=== PATIENT | male | born 1940 | race Caucasian/White ===

== ENCOUNTER → 2021-03-03 12:55 | Outpatient (CLI) | payer MEDICARE, OTHER, SELFPAY ==
--- NOTE | 2021-03-03 | DI.MRI.S_ITS ---
PROCEDURE: MR HEAD/BRAIN WO/W CON INDICATIONS: Unspecified disturbances of smell and taste TECHNIQUE: Noncontrast axial T1 spin echo, axial T2 fast spin echo, sagittal and axial FLAIR, coronal T2 fast spin echo, axial gradient echo, axial diffusion and ADC through the brain. After the administration of contrast, axial and coronal T1 spin echo with fat saturation through the brain. COMPARISON: None. FINDINGS: Image quality: Excellent. CSF spaces: Basal cisterns are patent. No extra-axial fluid collections. Ventricles are normal in size and shape. Brain: No midline shift. No intracranial bleeds . There is a 12 mm diameter dural based avidly enhancing focus within the left pre pontine cistern anteriorly. There is cerebral volume loss for age. There is a small chronic left frontoparietal lobe infarct. There is periventricular white matter chronic small vessel ischemic change. The brainstem appears normal. Diffusion-weighted images demonstrate no acute ischemic insults. No chronic ischemic insults. Normal intravascular flow voids are present. Skull and face: Calvarial marrow is normal in signal. Orbits appear normal. Sinuses: Sinuses and mastoids appear clear. IMPRESSION: 1. 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 2. Small chronic left parietal lobe infarct. 3. No acute process. No recent infarct. 4. Left pre pontine cistern meningioma. Dictated by: Alcides Coats M.D. on 03/03/2021 at 14:11 Approved by: Alcides Coats M.D. on 03/03/2021 at 14:14
== END ==
PROVIDERS: Family Provider Family Medicine; PCP Family Medicine; Referring Provider Family Medicine; Visit Provider Family Medicine
DX: R43.9 Unspecified disturbances of smell and taste (principal); I67.82 Cerebral ischemia; D32.9 Benign neoplasm of meninges, unspecified
CPT/HCPCS: 70553

== ENCOUNTER → 2022-03-10 13:33 | Outpatient (CLI) | payer MEDICARE, OTHER, SELFPAY ==
--- NOTE | 2022-03-10 | DI.ECHO.S_ITS ---
[facility] +---------+ : : [address] : : : : [id number] : : : : Phone: [phone]+ Echocardiogram Report + + :Name: SHANTA ADAN Study Date: 03/10/2022 Height: 70 in : :[facility] ReadingLocation: Weight: 170 lb : : Gender: Male BSA: 1.9 m2 : :: 1940 Age: 81 yrs BP: 123/76 mmHg: :Reason For Study: Syncope : :Ordering Physician: KYREE, : :NEWTON Millan Performed By: Randy Johnson : :Referring: NEWTON ADORNO : + + Interpretation Summary The ejection fraction is estimated to be 55-60%. The right ventricle is normal in size and function. There is no significant valvular heart disease. Procedure: A two-dimensional transthoracic echocardiogram with color flow and Doppler was performed. The study quality was technically adequate. There is no prior echocardiogram noted for this patient. Left Ventricle: The left ventricle is normal in size and wall thickness. Left ventricular systolic function is normal. The ejection fraction is estimated to be 55-60%. There are no focal wall motion abnormalities. Diastolic function could not be accurately assessed due to unobtainable data. Right Ventricle: The right ventricle is normal in size and function. Atria: Both atria are normal in size. The interatrial septum grossly appears intact with no obvious evidence for an atrial septal defect. Mitral Valve: The mitral valve is normal in structure and function. There is trace mitral regurgitation. Aortic Valve: There is mild aortic valve sclerosis. There is trace aortic regurgitation. Tricuspid Valve: The tricuspid valve is normal in structure and function. There is a trace or physiologic amount of tricuspid regurgitation. Pulmonary artery pressures cannot be estimated because of the lack of a measurable TR jet velocity. Pulmonic Valve: The pulmonic valve is not well seen, but is grossly normal. There is no pulmonic valvular regurgitation. Great Vessels: The aortic root is mildly dilated. The ascending aorta is mildly enlarged. The IVC is of normal diameter and collapses greater than 50% with a sniff. This suggests a low right atrial pressure of 3 mm Hg. Pericardium/ Pleura There is no pericardial effusion. There is no pleural effusion. MMode/2D Measurements & Calculations LVIDd: 5.4 cm LVOT diam: 2.2 cm LVIDs: 3.5 cm Ao root diam: 4.0 cm FS: 35.2 % asc Aorta Diam: 3.8 cm IVSd: 0.90 cm LVPWd: 0.90 cm LV martinez. diameter/BSA (cm/m^2): 2.8 LV sys. diameter/BSA (cm/m^2): 1.8 LA dimension: 3.6 cm RA long axis: 4.7 cm LA A2 area: 21.9 cm2 LA A4 area: 17.1 cm2 LA length (vol): 5.3 cm LA vol: 59.6 ml LA vol index: 30.6 ml/m2 TAPSE_phl: 2.4 cm Doppler Measurements & Calculations Ao V2 max: 125.0 cm/sec LVOT Max Binh: 102.0 cm/sec Ao V2 mean: 95.1 cm/sec LV V1 max P.2 mmHg Ao max P.0 mmHg LV V1 VTI: 22.5 cm Ao mean P.0 mmHg MAR(I,D): 3.3 cm2 Ao V2 VTI: 26.1 cm MAR(V,D): 3.1 cm2 sev ratio: 0.86 MAR indexed to BSA (cm^2/m^2): 1.7 MV E max binh: 91.3 cm/sec SV(LVOT): 85.5 ml MV A max binh: 82.7 cm/sec MV E/A: 1.1 Med Peak E' Binh: 5.6 cm/sec E/E' med: 16.3 Lat Peak E' Binh: 11.9 cm/sec E/E' lat: 7.7 E/e' average: 12.0 MV dec time: 0.14 sec AV VR_phl: 0.82 MV P1/2t-pr_phl: 40.0 msec MAR(VTI)/BSA_phl: 1.7 Reading Physician:03:12 PM
== END ==
PROVIDERS: Family Provider Family Medicine; PCP Family Medicine; Referring Provider Nurse Practitioner Family; Visit Provider Nurse Practitioner Family
DX: I35.8 Other nonrheumatic aortic valve disorders (principal); I77.810 Thoracic aortic ectasia; I77.89 Other specified disorders of arteries and arterioles; R55 Syncope and collapse
CPT/HCPCS: 93306

== ENCOUNTER 2022-08-28 18:50 | Emergency (ER) | payer MEDICARE, OTHER, SELFPAY ==
[2022-08-28] VITALS (8 sets, daily range): BP systolic 120–133; BP diastolic 66–83; PULSE 69–80; RESP 13–24; TEMP 36.7; O2SAT 99–100
--- NOTE | 2022-08-28 19:01 | DI.CT.S_ITS ---
PROCEDURE: CT HEAD/BRAIN WO CON INDICATIONS: Weakness TECHNIQUE: Noncontrast 4.5 mm thick angled axial sections acquired from the foramen magnum to the vertex, with coronal and sagittal reformats. For radiation dose reduction, the following was used: automated exposure control, adjustment of mA and/or kV according to patient size. COMPARISON: None. FINDINGS: Image quality: Excellent. CSF spaces: Basal cisterns are patent. No extra-axial fluid collections. The ventricles are symmetric in size and shape. Brain: No intracranial bleeds or masses. There is cerebral volume loss for age, with resultant ventricular and sulcal prominence. There are periventricular and deep white matter chronic small vessel ischemic changes. There is intracranial internal carotid artery atherosclerosis. Skull and face: Calvarium and visualized facial bones appear intact, without suspicious lesions. Tiny metallic foreign body, high right forehead. Sinuses: Visualized sinuses and mastoids are clear. IMPRESSION: No evidence acute intracranial process. Dictated by: Jacob Smith M.D. on 08/28/2022 at 19:48 Approved by: Jacob Smith M.D. on 08/28/2022 at 19:49
--- NOTE | 2022-08-28 19:11 | ED.GENADULT ---
HPI - General Adult General Chief complaint: Weakness Stated complaint: gen weakness Time Seen by Provider: 08/28/22 19:01 Source: EMS Mode of arrival: EMS History of Present Illness HPI narrative: Patient is an 82-year-old male who was flown in from the [place] where he lives after they were called by the patient's for decreased level of consciousness. I am unsure exactly when the symptoms started. There was some reports that maybe it was a couple days ago. There was also report that the patient did drink this evening. Was also question as to whether not the patient may be receiving more opioid pain medication. He initially was supposed to be on 5 mg 3 times a day however there was a prescription for 15 mg to be given once daily however the flight nurse stated that the potentially has been giving him this 3 times a day. Patient is unable to provide any HPI. Related Data Previous Rx's Medication Instructions Recorded atorvastatin 20 mg tablet (Lipitor) 20 mg PO HS #30 tabs 07/20/16 testosterone 20.25 mg/1.25 gram 1.62 % topical QDAY ##113 04/13/17 (1.62 %) transdermal gel pump (AndroGel) gabapentin 300 mg capsule 1,200 mg PO TID #360 caps 06/16/17 (Neurontin) sertraline 100 mg tablet 100 mg PO QDAY #90 tabs 07/03/17 morphine 15 mg immediate release 45 mg PO QIDP PRN #336 tabs 07/27/17 tablet Allergies Allergy/AdvReac Type Severity Reaction Status Date / Time No Known Drug Allergies Allergy Verified 08/28/22 21:36 Review of Systems Review of Systems ROS Unobtainable: Unobtainable due to mental condition Exam Initial Vital Signs Initial Vital Signs: Vital Signs Temperature 98.0 F 08/28/22 18:53 Pulse Rate 79 08/28/22 18:53 Respiratory Rate 18 08/28/22 18:53 Blood Pressure 130/78 08/28/22 18:53 Pulse Oximetry 99 08/28/22 18:53 Oxygen Delivery Method 08/28/22 18:53 Const General: comfortable and No ill appearing HENMT Head: normal to inspection and normocephalic Eyes Pupils: PERRL and pupil size bilaterally 4 Resp Effort & Inspection: normal respiratory effort Auscultation: clear to auscultation bilaterally Cardio Rate: regular rate Rhythm: regular rhythm GI Inspection: normal to inspection and non-distended Skin General: no rashes or lesions noted Neuro Other: Patient was easily arousable but did not know the year. Did not know where he was did know why he was. He did know his date. He did follow commands. 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 He was able to move both lower extremities equally. Extrem Other: No gross deformities. Psych Appearance: well kempt Scores GCS Loco coma scale eye opening: To sound Loco coma scale verbal response: Confused L[place] coma scale motor response: Obey commands [place] coma scale total score: 13 Course Orders Ordered: ED Orders 08/28/22 19:35 Acetaminophen Stat Ammonia (NH3) Stat Complete Blood Count AUTO DIFF Stat Comprehensive Metabolic Panel Stat Ethanol (ETOH) Stat Lipase Stat Procalcitonin Stat Salicylate Stat Troponin & CK Cardiac Panel Stat 08/28/22 19:46 COVID19 -Nasal RAPID/Pre-Proc Stat 08/28/22 21:15 Blood Culture Stat Urine Drug Screen, Rapid Stat Discontinued Medications Sodium Chloride (Normal Saline 0.9%) 1,000 mls @ 1,000 mls/hr IV BOLUS ONE Stop: 08/28/22 20:00 Last Infusion: 08/28/22 22:11 Dose: 0 mls/hr Documented By: Admin: 08/28/22 19:41 Dose: 1,000 mls/hr Documented By: FEI Vital Signs Vital signs: Vital Signs - 8 hr 08/28/22 21:00 08/28/22 22:08 08/29/22 02:18 Pulse Rate 80 79 65 Respiratory Rate 22 24 16 Blood Pressure 120/66 135/72 Pulse Oximetry 100 99 98 Oxygen Delivery Method Room Air Room Air Room Air Medical Decision Making Lab Data Lab results reviewed: Yes I reviewed the patient's lab results. Result diagrams: 08/28/22 19:35 08/28/22 19:35 Labs: Lab Results 08/28/22 08/28/22 08/28/22 Range/Units 19:35 19:35 19:35 WBC 7.3 (4.5-11.0) X10^3/uL RBC 3.60 L (4.5-5.9) X10^6/uL Hgb 12.1 L (13.5-17.5) g/dL Hct 35.3 L (41-53) % MCV 98.1 (80-100) fL MCH 33.8 (26-34) PG MCHC 34.4 (30-36) % RDW 14.0 (11.6-14.8) % Plt Count 179 (150-400) X10^3/uL Neut % (Auto) 64.0 (50-75) % Lymph % (Auto) 28.8 (25-40) % [place] % (Auto) 6.4 (3-14) % Eos % (Auto) 0.5 L (2-4) % Baso % (Auto) 0.3 (0-2) % Neut # (Auto) 4600 (2252-6073) /uL Lymph # (Auto) 2100 (4092-8168) /uL [place] # (Auto) 500 (0-900) /uL Eos # (Auto) 0 (0-450) /uL Baso # (Auto) 0 (0-100) /uL Sodium 146 H (137-145) mmol/L Potassium 3.6 (3.4-5.1) mmol/L Chloride 111 H (98-107) mmol/L Carbon Dioxide 25 (22-32) mmol/L BUN 7 L (9-20) mg/dL Creatinine 0.74 (0.66-1.25) mg/dL Estimated GFR > 60 (>60) mL/min BUN/Creatinine Ratio 9.5 (6-22) Glucose 105 (80-110) mg/dL Calcium 8.5 (8.4-10.2) mg/dL Total Bilirubin 0.5 (0.2-1.3) mg/dL AST 35 (17-59) IU/L ALT 21 (<50) IU/L Alkaline Phosphatase 79 (38-126) U/L Ammonia < 9 L (9-30) umol/L Total Creatine Kinase 78 (55-170) U/L CK-MB (CK-2) TNP CK-MB (CK-2) Rel Index TNP Troponin I < 0.012 (0.01-0.034) ng/mL Total Protein 7.5 (6.3-8.2) g/dL Albumin 4.0 (3.5-5.0) g/dL Globulin 3.5 (1.7-4.1) g/dL Albumin/Globulin Ratio 1.1 (1.0-2.8) Lipase 585 H (23-300) U/L Procalcitonin (<0.5) ng/mL Salicylates (<20) mg/dL U Opiates 300ng/mL cut (Negative) Ur Oxycodone Screen (Negative) Urine Methadone Screen (Negative) Acetaminophen (10-30) ug/mL Ur Barbiturates Screen (Negative) U Tricyclic Antidepress (Negative) Ur Phencyclidine Scrn (Negative) Ur Amphetamines Screen (Negative) U Methamphetamines Scrn (Negative) Ur MDMA Scrn (Ecstasy) (Negative) U Benzodiazepines Scrn (Negative) Urine Cocaine Screen (Negative) U Marijuana (THC) Screen (Negative) Ethyl Alcohol 231 H ( - 10) mg/dL SARS-CoV-2 (PCR) (Negative) 08/28/22 08/28/22 08/28/22 Range/Units 19:35 19:46 21:15 WBC (4.5-11.0) X10^3/uL RBC (4.5-5.9) X10^6/uL Hgb (13.5-17.5) g/dL Hct (41-53) % MCV (80-100) fL MCH (26-34) PG MCHC (30-36) % RDW (11.6-14.8) % Plt Count (150-400) X10^3/uL Neut % (Auto) (50-75) % Lymph % (Auto) (25-40) % [place] % (Auto) (3-14) % Eos % (Auto) (2-4) % Baso % (Auto) (0-2) % Neut # (Auto) (7460-7487) /uL Lymph # (Auto) (3438-0095) /uL [place] # (Auto) (0-900) /uL Eos # (Auto) (0-450) /uL Baso # (Auto) (0-100) /uL Sodium (137-145) mmol/L Potassium (3.4-5.1) mmol/L Chloride (98-107) mmol/L Carbon Dioxide (22-32) mmol/L BUN (9-20) mg/dL Creatinine (0.66-1.25) mg/dL Estimated GFR (>60) mL/min BUN/Creatinine Ratio (6-22) Glucose (80-110) mg/dL Calcium (8.4-10.2) mg/dL Total Bilirubin (0.2-1.3) mg/dL AST (17-59) IU/L ALT (<50) IU/L Alkaline Phosphatase (38-126) U/L Ammonia (9-30) umol/L Total Creatine Kinase (55-170) U/L CK-MB (CK-2) CK-MB (CK-2) Rel Index Troponin I (0.01-0.034) ng/mL Total Protein (6.3-8.2) g/dL Albumin (3.5-5.0) g/dL Globulin (1.7-4.1) g/dL Albumin/Globulin Ratio (1.0-2.8) Lipase (23-300) U/L Procalcitonin 0.03 (<0.5) ng/mL Salicylates < 1.0 (<20) mg/dL U Opiates 300ng/mL cut Positive H (Negative) Ur Oxycodone Screen Negative (Negative) Urine Methadone Screen Negative (Negative) Acetaminophen < 10 (10-30) ug/mL Ur Barbiturates Screen Negative (Negative) U Tricyclic Antidepress Negative (Negative) Ur Phencyclidine Scrn Negative (Negative) Ur Amphetamines Screen Negative (Negative) U Methamphetamines Scrn Negative (Negative) Ur MDMA Scrn (Ecstasy) Negative (Negative) U Benzodiazepines Scrn Negative (Negative) Urine Cocaine Screen Negative (Negative) U Marijuana (THC) Screen Negative (Negative) Ethyl Alcohol ( - 10) mg/dL SARS-CoV-2 (PCR) Negative (Negative) Urine Dip Bedside Urine Glucose Negative Bedside Urine Bilirubin - Negative Bedside Urine Ketone - Negative Urine Specific [place] 1.010 Bedside Urine Occult Blood +++ Bedside Urine pH 6.0 Bedside Urine Protein - Negative Bedside Urine Urobilinogen - Negative Bedside Urine Nitrite - Negative Bedside Urine Leukocytes - Negative Esterase Point of care testing: Urine Dip Bedside Urine Glucose Negative Bedside Urine Bilirubin - Negative Bedside Urine Ketone - Negative Urine Specific [place] 1.010 Bedside Urine Occult Blood +++ Bedside Urine pH 6.0 Bedside Urine Protein - Negative Bedside Urine Urobilinogen - Negative Bedside Urine Nitrite - Negative Bedside Urine Leukocytes - Negative Esterase Imaging Data CT scan - head: Radiologist's Impression: [address] [address] [address] Scan Report Signed Patient: Jarrett Morton MR#: [id number] : 1940 Acct:[id number] Age/Sex: 82 / M Date of Service: 08/28/22 Loc: ED Accession Number: [id number] ?? Procedure: CT head/brain wo con Ordering Provider: Yasmany Calvin D.O. PROCEDURE:? CT HEAD/BRAIN WO CON ? INDICATIONS:? Weakness ? TECHNIQUE:? Noncontrast 4.5 mm thick angled axial sections acquired from the foramen magnum to the vertex, with coronal and sagittal reformats.? For radiation dose reduction, the following was used:? automated exposure control, adjustment of mA and/or kV according to patient size.? ? COMPARISON:? None. ? FINDINGS:? Image quality:? Excellent.? ? CSF spaces:? Basal cisterns are patent.? No extra-axial fluid collections.? The ventricles are symmetric in size and shape.? ? Brain:? No intracranial bleeds or masses.? There is cerebral volume loss for age, with resultant ventricular and sulcal prominence.? There are periventricular and deep white matter chronic small vessel ischemic changes.? There is intracranial internal carotid artery atherosclerosis.? ? Skull and face:? Calvarium and visualized facial bones appear intact, without suspicious lesions.? Tiny metallic foreign body, high right forehead.? ? Sinuses:? Visualized sinuses and mastoids are clear.? ? IMPRESSION:? No evidence acute intracranial process. ? ? Dictated by: Jacob Smith M.D. on 08/28/2022 at 19:48 ? ? Approved by: Jacob Smith M.D. on 08/28/2022 at 19:49?? [facility] Narrative Medical decision making narrative: Patient was confused as to why he was here where he was what year it was. His alcohol level was significantly elevated. There was also some question as to maybe he was taking more of his opioid pain medication than what he was supposed to. Potentially the combination of these 2 resulted in his confusion. Said CT was unremarkable. He had no focal neuro deficits other than the confusion. His pupils were 4 mm. He was not given any Narcan. He was not in any respiratory distress. During his stay in the emergency department the patient was able to ambulate. Patient did wake up. He stated that he felt well enough to go home. He was surprised had an elevated alcohol level. He admitted that maybe the combination of the alcohol and his pain medication caused him to be confused. He was calm and cooperative thankful. Will discharge patient home. Discharge Plan Departure Patient Disposition: Home Clinical Impression: Alcohol intoxication Activity Restrictions/Additional Instructions: Your alcohol level was significantly elevated upon arrival and I suspect that the amount of alcohol that you were drinking combined with the pain medication caused your confusion. I recommend that you avoid drinking while you are taking these medications. There was also some concern by the flight nurse that maybe your taking too much pain medication. Be sure that you are looking at the instructions on the prescription bottle to make sure that you are taking it appropriately. Contact your primary doctor for a follow-up. Prescriptions: No Action atorvastatin [Lipitor] 20 MG tablet 20 mg PO HS Qty: 30 1RF testosterone [AndroGel] 75 GM gel in metered-dose pump 1.62 % Topical QDAY Qty: 113 0RF gabapentin [Neurontin] 300 MG capsule 1,200 mg PO TID Qty: 360 2RF sertraline 100 MG tablet 100 mg PO QDAY Qty: 90 1RF morphine 15 MG tablet 45 mg PO QIDP PRNQty: 336 [id number] Referrals: Sylvester Burgess MD [Primary Care Provider] -
[2022-08-28] MEDS: SODIUM CHLORIDE 0.9% 1,000 ML 1000 ML IV (19:41)
[2022-08-28 19:50] LABS: Add Manual Diff / Slide Review NO; Basophils Absolute Auto 0 /uL (0-100); Basophils Percent Auto 0.3 % (0-2); Eosinophils Absolute Auto 0 /uL (0-450); Eosinophils Percent Auto 0.5 % (2-4); Hematocrit 35.3 % (41-53); Hemoglobin 12.1 g/dL (13.5-17.5); Lymphocytes Absolute Auto 2100 /uL (1100-4500); Lymphocytes Percent Auto 28.8 % (25-40); Mean Corpuscular HGB Conc 34.4 % (30-36); Mean Corpuscular Hemoglobin 33.8 PG (26-34); Mean Corpuscular Volume 98.1 fL (80-100); Monocytes Absolute Auto 500 /uL (0-900); Monocytes Percent Auto 6.4 % (3-14); Neutrophils Absolute Auto 4600 /uL (1500-7000); Platelet Count 179 X10^3/uL (150-400); White Blood Cell Count 7.3 X10^3/uL (4.5-11.0)
[2022-08-28 19:57] LABS: HEMOLYSIS < 15 (0-50)
[2022-08-28 20:02] LABS: Ammonia (NH3) < 9 umol/L (9-30)
[2022-08-28 20:04] LABS: Acetaminophen < 10 ug/mL (10-30); Salicylate < 1.0 mg/dL (<20)
[2022-08-28 20:05] LABS: COVID19 -Nasal RAPID Negative (Negative)
[2022-08-28 20:15] LABS: Troponin I < 0.012 ng/mL (0.01-0.034)
[2022-08-28 20:16] LABS: Alanine Aminotransferase 21 IU/L (<50); Albumin Globulin Ratio 1.1 (1.0-2.8); Alkaline Phosphatase 79 U/L (38-126); Aspartate Aminotransferase 35 IU/L (17-59); BUN Creatinine Ratio 9.5 (6-22); Bilirubin Total 0.5 mg/dL (0.2-1.3); Blood Urea Nitrogen 7 mg/dL (9-20); Calcium 8.5 mg/dL (8.4-10.2); Carbon Dioxide 25 mmol/L (22-32); Chloride 111 mmol/L (98-107); Creatine Kinase 78 U/L (55-170); Estimated Glomerular Filt Rate > 60 mL/min (>60); Globulin 3.5 g/dL (1.7-4.1); Glucose 105 mg/dL (80-110); Lipase 585 U/L (23-300); Potassium 3.6 mmol/L (3.4-5.1); Sodium 146 mmol/L (137-145); Total Protein 7.5 g/dL (6.3-8.2)
[2022-08-28 20:20] LABS: Procalcitonin 0.03 ng/mL (<0.5)
[2022-08-28 20:26] LABS: Ethanol (ETOH) 231 mg/dL
--- NOTE | 2022-08-28 20:44 | PC.NURSE ---
pt daughter in law called, she plans on driving up from [place] in the morning and picking up pts and bringing her here. Nora [phone].
--- NOTE | 2022-08-28 21:34 | PC.NURSE ---
pt unsure why he is here, oriented to self. pt denies allergies. possible medication error at home, morphine 15mg vs 45mg for the last 3 days.
--- NOTE | 2022-08-28 21:36 | PC.NURSE ---
pulled both sets of blood cultures from left ac iv site, changed brief. pt straight cath for urine sample. pt tolerated well. pt bottom cleaned from small amt of stool.
[2022-08-28 22:05] LABS: Ur Creatinine 20 (Normal); Ur Specific Gravity 1.015 (Normal); Urine Cocaine Negative (Negative); Urine Tetrahydrocannabinol Negative (Negative); Urine pH 5 (Normal)
[2022-08-28 22:06] LABS: UR Morphine/Opiate cutoff 300 Positive (Negative); Urine Amphetamines Negative (Negative); Urine Barbiturates Negative (Negative); Urine Benzodiazepines Negative (Negative); Urine MDMA Negative (Negative); Urine Methadone Negative (Negative); Urine Methamphetamines Negative (Negative); Urine Oxycodone Negative (Negative); Urine Phencyclidine Negative (Negative); Urine Tricyclic Antidepressant Negative (Negative)
--- NOTE | 2022-08-29 00:18 | PC.NURSE ---
Pt got out of bed and ambulated without assistance. This RN changed pt's wet brief and assisted pt with scooby urinal. Pt then returned to bed and this RN applied warm blankets to pt. Pt is A&O to self, calm and cooperative.
[2022-08-29 02:18] VITALS: BP 135/72; PULSE 65; RESP 16; O2SAT 98
--- NOTE | 2022-08-29 04:40 | PC.NURSE ---
Pt called for RN and is requesting to go home. Pt is alert and oriented to self and place. Pt is no longer confused and interacts appropriately with this RN. MD notified and voicemail left with daughter, Nora, who was planning to come see the patient in the a.m. Nora:
[2022-08-29 06:38] VITALS: BP 174/94; PULSE 69; RESP 20; O2SAT 100
--- NOTE | 2022-08-29 06:44 | PC.NURSE ---
Pt's [id number], Nora is en-route to bring pt home to [place] where his is waiting. Nora expressed concern for the patient's behaviors and has inquired if the pt could be made to go to detox. She said that the pt's has been concerned about the pt's consumption of alcohol and use of pain meds and wants him to go to detox. This RN spoke with the pt and pt denies SI/HI and states that he has been talking with his about having both of them quit alcohol. Pt denies wanting to go to detox and states that him and his will try quitting together and if it sheets not work out they will then seek outside help. Pt denies having a hx of alcohol withdrawal. This RN then educated pt on the risks of quitting alcohol and the risk of drinking alcohol and taking pain medication simultaneously.
[2022-08-29 09:47] VITALS: PULSE 77; O2SAT 100
[2022-08-29 09:48] VITALS: BP 157/88; PULSE 74; O2SAT 100
[2022-08-29 10:00] VITALS: BP 147/88; PULSE 70; O2SAT 100
[2022-08-29 11:26] VITALS: BP 146/77; PULSE 78; RESP 16; O2SAT 97
[2022-08-30 02:03] LABS: Acinetobacter baumannii Not Detected (Not Detect); E. coli Not Detected (Not Detect); Enterobacter cloacae complex Not Detected (Not Detect); Enterobacteriaceae species Not Detected (Not Detect); Enterococcus species Not Detected (Not Detect); Listeria monocytogenes Not Detected (Not Detect); Proteus species Not Detected (Not Detect); Serratia marcescens Not Detected (Not Detect); Staphylococcus species Not Detected (Not Detect); Streptococcus agalactiae (Gr B Not Detected (Not Detect); Streptococcus pneumonia Not Detected (Not Detect); Streptococcus pyogenes (Gr A) Not Detected (Not Detect); Streptococcus species Not Detected (Not Detect)
[2022-08-30 02:04] LABS: Candida albicans Not Detected (Not Detect); Candida glabrata Not Detected (Not Detect); Candida krusei Not Detected (Not Detect); Candida parapsilosis Not Detected (Not Detect); Candida tropicalis Not Detected (Not Detect); Haemophilus influenzae Not Detected (Not Detect); Neisseria meningitidis Not Detected (Not Detect); Pseudomonas aeruginosa Not Detected (Not Detect)
== END 2022-08-29 11:34 | disposition home or self-care (01) ==
PROVIDERS: Emergency Provider Emergency Medicine; Family Provider Family Medicine; PCP Family Medicine
DX: F10.129 Alcohol abuse with intoxication, unspecified (principal); Y90.7 Blood alcohol level of 200-239 mg/100 ml; Z20.822 Contact with and (suspected) exposure to COVID-19; R41.0 Disorientation, unspecified; R53.1 Weakness
CPT/HCPCS: 36415; 51701; 70450; 80053; 80305; 80320; 80329; 81003; 82140; 82550; 83690; 84145; 84484; 85025; 87040; 87150; 87635; 99284; C9803; G0480

== ENCOUNTER → 2022-10-26 11:15 | Outpatient (CLI) | payer MEDICARE, OTHER, SELFPAY ==
[2022-10-26 11:58] LABS: Ammonia (NH3) < 9 umol/L (9-30)
== END ==
PROVIDERS: Family Provider Family Medicine; PCP Family Medicine; Referring Provider Psychiatry & Neurology Neurology; Visit Provider Psychiatry & Neurology Neurology
DX: R41.89 Other symptoms and signs involving cognitive functions and awareness (principal); R25.1 Tremor, unspecified
CPT/HCPCS: 36415; 82140

== ENCOUNTER → 2023-08-16 12:50 | Outpatient (CLI) | payer MEDICARE, OTHER, SELFPAY ==
--- NOTE | 2023-08-16 | DI.MRI.S_ITS ---
PROCEDURE: MR HEAD/BRAIN WO/W CON INDICATIONS: Benign neoplasm of meninges, unspecified TECHNIQUE: Noncontrast axial T1 spin echo, axial T2 fast spin echo, sagittal and axial FLAIR, coronal T2 fast spin echo, axial gradient echo, axial diffusion and ADC through the brain. After the administration of contrast, axial and coronal and sagittal T1 spin echo with fat saturation through the brain. COMPARISON: [facility], , MR HEAD/BRAIN WO/W CON, 03/03/2021, 13:38. FINDINGS: Image quality: Due to patient kyphosis, the standard head coils unable to be used in this patient, with compromised image quality. CSF spaces: Basal cisterns are patent. No extra-axial fluid collections. Ventricles are normal in size and shape. Brain: An extra-axial mass is again seen involving the left cerebellopontine angle cistern, with a wide attachment to the dura. This mass demonstrates low signal on T2 weighted imaging. There is at least moderate, relatively uniform internal enhancement. This measures up to 12 mm, as on series 13, image 50. No new masses or areas of abnormal enhancement can be seen. No midline shift. No intracranial bleeds. There is cerebral volume loss for age. There is periventricular white matter chronic small vessel ischemic change. The brainstem appears normal. Diffusion-weighted images demonstrate no acute ischemic insults. No chronic ischemic insults. Normal intravascular flow voids are present. Skull and face: Calvarial marrow is normal in signal. Orbits appear normal. Note is made of bilateral lens replacements. Sinuses: Sinuses and mastoids appear clear. IMPRESSION: Stable meningioma until proven otherwise involving the left cerebellopontine angle cistern. Dictated by: Sanya Ly M.D. on 08/16/2023 at 14:00 Approved by: Sanya Ly M.D. on 08/16/2023 at 14:02
== END ==
PROVIDERS: Family Provider Family Medicine; PCP Family Medicine; Referring Provider Family Medicine; Visit Provider Family Medicine
DX: D32.9 Benign neoplasm of meninges, unspecified (principal)
CPT/HCPCS: 70553; A9579